=== PATIENT | male | born 1950 | race Caucasian/White ===

== ENCOUNTER 2017-09-17 16:43 | Inpatient (IN) | payer MEDICARE ==
[~2017-09-17] VITALS: Ht 182.9 cm; Wt 108.4 kg
[~2017-09-17 16:43] MED LIST: ASPI-496 PO; ATOR40TA78 PO; CARV-39 PO; CARV6.252 PO; CYCL-259 PO; GABA300C10 PO; HYDR-3237 PO; LISI-170 PO; LISI40TA PO; LOVA20TA2 PO; MAGN400O7 PO; METF10002 PO; SENN8.6C2 PO; TRAM50TA2 PO
[2017-09-17] MEDS ORDERED: SODIUM CHLORIDE FLUSH 10ML SYR IVF ONE (17:30)
[2017-09-17 17:44] LABS: BASOPHILS # (AUTO) 0.03 x10^3/uL (0-0.1); BASOPHILS % (AUTO) 0 % (0-1); EOSINOPHILS % (AUTO) 0 % (1-7); LYMPHOCYTES # (AUTO) 1.58 x10^3/uL (1-3.4); LYMPHOCYTES % (AUTO) 12 % (22-44); MD NO; MEAN CORPUSCULAR HEMOGLOBIN 27.3 pg (27.5-34.5); MEAN CORPUSCULAR HGB CONC 31.4 g/dL (33.2-36.2); MEAN PLATELET VOLUME 8.9 fL (7.4-10.4); MONOCYTES # (AUTO) 1.09 x10^3/uL (0.2-0.8); MONOCYTES % (AUTO) 8 % (2-9); NEUTROPHILS % (AUTO) 80 % (42-75); PLATELET COUNT 363 x10^3/uL (130-400); RED BLOOD COUNT 4.77 x10^6/uL (4.38-5.82); RED CELL DISTRIBUTION WIDTH 16.4 % (9.4-14.8)
[2017-09-17 17:54] LABS: ALANINE AMINOTRANSFERASE 39 U/L (12-78); ALBUMIN 2.4 g/dL (3.4-5.0); ANION GAP 5 mmol/L (5-15); CALCIUM 8.7 mg/dL (8.5-10.1); CHLORIDE 104 mmol/L (98-107); CREATININE 1.45 mg/dL (0.7-1.3)
[2017-09-17 17:59] LABS: ALKALINE PHOSPHATASE 201 U/L (45-117); BILIRUBIN,TOTAL 0.8 mg/dL (0.2-1.0); TOTAL PROTEIN 8.4 g/dL (6.4-8.2)
[2017-09-17 18:06] LABS: INTERNATIONAL NORMALIZED RATIO 1.2 (0.93-1.1); PROTHROMBIN TIME 12.4 Seconds (9.6-11.5)
[2017-09-17] MEDS ORDERED: AZITHROMYCIN 500 MG in SODIUM CHLORIDE 0.9% 250 ML IVPB ONE (19:00)
[2017-09-17] MEDS ORDERED: CEFTRIAXONE PMX 1GM/50ML 50 ML IVPB ONE (19:00)
[2017-09-17] MEDS ORDERED: SODIUM CHLORIDE FLUSH 10ML SYR IVF PRN (19:30)
[2017-09-17] MEDS ORDERED: CEFTRIAXONE PMX 1GM/50ML 50 ML ONE (20:10)
[2017-09-17] MEDS ORDERED: morphine SULFATE 10 MG/ML, 1ML IVPush PRN (21:00)
[2017-09-17] MEDS ORDERED: NITROGLYCERIN 0.4 MG BOTTLE (25 TABS) SL PRN (21:00)
[2017-09-17] MEDS ORDERED: CARVEDILOL 25 MG TABLET PO SCH (21:00)
[2017-09-17] MEDS ORDERED: ACETAMINOPHEN 325 MG TABLET PO PRN (21:00)
[2017-09-17] MEDS ORDERED: ONDANSETRON 2MG/ML, 2ML IVPush PRN (21:00)
[2017-09-17] MEDS ORDERED: BISACODYL 10 MG SUPP PR PRN (21:00)
[2017-09-17] MEDS ORDERED: POLYETHYLENE GLYCOL 17 GM PACKET PO PRN (21:00)
[2017-09-17] MEDS ORDERED: FUROSEMIDE 20 MG/2 ML IV SCH (21:00)
[2017-09-17] MEDS ORDERED: METHOCARBAMOL 750 MG TABLET PO PRN (21:00)
[2017-09-17] MEDS ORDERED: HEPARIN 5,000 UNITS/ML, 1ML IV ONE (21:30)
[2017-09-17] MEDS ORDERED: HEPARIN 5,000 UNITS/ML, 1ML IV PRN (21:30)
[2017-09-17] MEDS ORDERED: HEPARIN 25,000 UNITS/500ML PMX 500 ML IV PRN (21:30)
[2017-09-17] MEDS: CEFTRIAXONE PMX 1GM/50ML 50 ML IV SCH (22:26)
[2017-09-17] MEDS: AZITHROMYCIN 500 MG in SODIUM CHLORIDE 0.9% 250 ML IV SCH (22:45)
[2017-09-17] MEDS: ATORVASTATIN 40 MG TABLET PO SCH (22:46)
[2017-09-17] MEDS: SODIUM CHLORIDE FLUSH 10ML SYR IVF SCH (22:46)
[2017-09-17 23:56] LABS: TROPONIN I 0.944 ng/mL (0.000-0.045)
[2017-09-18 01:43] VITALS: BP_SYST 70; BP_SYST 72; BP_DIAS 47; BP_DIAS 50
[2017-09-18 02:30] VITALS: BP 92/58
[2017-09-18] MEDS ORDERED: SODIUM CHLORIDE 0.9%, 500ML IVBOLUS ONE (02:30)
[2017-09-18 02:40] VITALS: BP 92/60
[2017-09-18 05:30] LABS: BASOPHILS # (AUTO) 0.07 x10^3/uL (0-0.1); BASOPHILS % (AUTO) 0 % (0-1); EOSINOPHILS % (AUTO) 0 % (1-7); LYMPHOCYTES # (AUTO) 1.46 x10^3/uL (1-3.4); LYMPHOCYTES % (AUTO) 10 % (22-44); MD NO; MEAN CORPUSCULAR HEMOGLOBIN 27.4 pg (27.5-34.5); MEAN CORPUSCULAR HGB CONC 31.5 g/dL (33.2-36.2); MEAN CORPUSCULAR VOLUME 86.9 fL (81-97); MONOCYTES # (AUTO) 1.22 x10^3/uL (0.2-0.8); MONOCYTES % (AUTO) 8 % (2-9); NEUTROPHILS % (AUTO) 82 % (42-75); PLATELET COUNT 293 x10^3/uL (130-400); RED BLOOD COUNT 4.15 x10^6/uL (4.38-5.82); RED CELL DISTRIBUTION WIDTH 16.4 % (9.4-14.8)
[2017-09-18 05:44] LABS: CHLORIDE 106 mmol/L (98-107)
[2017-09-18 06:01] LABS: ALANINE AMINOTRANSFERASE 27 U/L (12-78); ALBUMIN 1.9 g/dL (3.4-5.0); ALKALINE PHOSPHATASE 153 U/L (45-117); ANION GAP 7 mmol/L (5-15); BILIRUBIN,TOTAL 0.8 mg/dL (0.2-1.0); CREATINE KINASE, TOTAL 205 U/L (39-308); CREATININE 1.32 mg/dL (0.7-1.3); TOTAL PROTEIN 6.8 g/dL (6.4-8.2); TROPONIN I 0.971 ng/mL (0.000-0.045)
[2017-09-18 06:17] LABS: MICROSCOPIC INDICATED
[2017-09-18 06:28] LABS: AMPHETAMINE SCREEN, URINE Positive (Negative); BARBITURATE SCREEN, URINE Negative (Negative); BENZODIAZEPINE SCREEN, URINE Negative (Negative); CANNABINOID SCREEN, URINE Negative (Negative); COCAINE SCREEN, URINE Negative (Negative); METHADONE SCREEN, URINE Negative (Negative); OPIATE SCREEN, URINE Negative (Negative)
[2017-09-18 06:29] LABS: CULTURE INDICATED? NO
[2017-09-18] MEDS: FUROSEMIDE 20 MG/2 ML IV SCH ×2 (07:30→15:38)
[2017-09-18 08:11] VITALS: BP 102/68
[2017-09-18] MEDS: SODIUM CHLORIDE FLUSH 10ML SYR IVF SCH ×2 (09:00→21:25)
[2017-09-18] MEDS ORDERED: LISINOPRIL 20 MG TABLET PO SCH (09:00)
[2017-09-18] MEDS ORDERED: CARVEDILOL 25 MG TABLET PO SCH ×2 (09:00→21:00)
[2017-09-18] MEDS: SENNA/DOCUSATE TABLET PO SCH (10:31)
[2017-09-18] MEDS: ASPIRIN 81 MG TABLET EC PO SCH (10:31)
[2017-09-18 14:00] VITALS: BP 128/77
[2017-09-18] MEDS: HEPARIN 5,000 UNITS/ML, 1ML SQ SCH (15:38)
[2017-09-18] MEDS ORDERED: CARVEDILOL 6.25 MG TABLET PO SCH (21:00)
[2017-09-18] MEDS: CEFTRIAXONE PMX 1GM/50ML 50 ML IV SCH (21:06)
[2017-09-18 21:13] VITALS: BP 100/63
[2017-09-18] MEDS: ATORVASTATIN 40 MG TABLET PO SCH (21:25)
[2017-09-18] MEDS: AZITHROMYCIN 500 MG in SODIUM CHLORIDE 0.9% 250 ML IV SCH (21:52)
[2017-09-18] MEDS ORDERED: SODIUM CHLORIDE 0.9% 1,000 ML IVBOLUS PRN (22:49)
[2017-09-18] MEDS ORDERED: GLUCAGON 1 MG IVPush ONE (23:30)
[2017-09-18] MEDS ORDERED: NOREPINEPHRINE 1 MG/ML, 4ML ONE (23:35)
[2017-09-18] MEDS: NOREPINEPHRINE 4 MG in SODIUM CHLORIDE 0.9% 246 ML IV PRN (23:40)
[2017-09-19] LABS: TROPONIN I 0.471 ng/mL (0.000-0.045)
[2017-09-19] MEDS ORDERED: NOREPINEPHRINE 4 MG in SODIUM CHLORIDE 0.9% 246 ML IV PRN
[2017-09-19] MEDS: HEPARIN 5,000 UNITS/ML, 1ML SQ SCH ×3 (00:03→15:43)
[2017-09-19] MEDS ORDERED: SODIUM CHLORIDE 0.9% 1,000ML IVBOLUS ONE ×2 (02:00→10:00)
[2017-09-19] MEDS: NOREPINEPHRINE 4 MG in SODIUM CHLORIDE 0.9% 246 ML IV PRN (02:11)
[2017-09-19] MEDS: SODIUM CHLORIDE 0.9% 1,000 ML IV SCH ×4 (02:39→20:22)
[2017-09-19 03:24] LABS: BASOPHILS # (AUTO) 0.08 x10^3/uL (0-0.1); BASOPHILS % (AUTO) 1 % (0-1); EOSINOPHILS % (AUTO) 0 % (1-7); LYMPHOCYTES # (AUTO) 1.69 x10^3/uL (1-3.4); LYMPHOCYTES % (AUTO) 11 % (22-44); MD NO; MEAN CORPUSCULAR HEMOGLOBIN 27.1 pg (27.5-34.5); MEAN CORPUSCULAR HGB CONC 30.7 g/dL (33.2-36.2); MEAN CORPUSCULAR VOLUME 88.3 fL (81-97); MEAN PLATELET VOLUME 9.4 fL (7.4-10.4); MONOCYTES # (AUTO) 0.95 x10^3/uL (0.2-0.8); MONOCYTES % (AUTO) 6 % (2-9); NEUTROPHILS # (AUTO) 12.32 x10^3/uL (1.8-6.8); NEUTROPHILS % (AUTO) 82 % (42-75); PLATELET COUNT 298 x10^3/uL (130-400); RED BLOOD COUNT 4.14 x10^6/uL (4.38-5.82); RED CELL DISTRIBUTION WIDTH 16.4 % (9.4-14.8)
[2017-09-19 03:29] LABS: ANION GAP 5 mmol/L (5-15); CALCIUM 7.6 mg/dL (8.5-10.1); CHLORIDE 105 mmol/L (98-107); CREATININE 1.44 mg/dL (0.7-1.3)
[2017-09-19] MEDS ORDERED: VASOPRESSIN 100 UNIT in SODIUM CHLORIDE 0.9% 495 ML IV PRN (03:30)
[2017-09-19] MEDS ORDERED: LIDOCAINE-MPF 1%, 2ML ENDO PRN (04:00)
[2017-09-19] MEDS ORDERED: PHARMACY MAY ADJ FOR RENAL FX MC SCH (04:00)
[2017-09-19] MEDS: NOREPINEPHRINE 8 MG in SODIUM CHLORIDE 0.9% 242 ML IV PRN ×2 (04:13→09:31)
[2017-09-19] MEDS: FAMOTIDINE 20 MG/2 ML IV SCH ×2 (04:35→15:43)
[2017-09-19 05:00] VITALS: BP_SYST 83; BP_SYST 93; BP_DIAS 56; BP_DIAS 59
[2017-09-19] MEDS ORDERED: ETOMIDATE 20 MG/10 ML ONE (07:30)
[2017-09-19] MEDS ORDERED: MIDAZOLAM 1 MG/ML, 5ML ONE (07:30)
[2017-09-19] MEDS ORDERED: PROPOFOL 10 MG/ML, 100ML IV ONE (07:30)
[2017-09-19] MEDS: SENNA/DOCUSATE TABLET PO SCH (09:00)
[2017-09-19] MEDS: ASPIRIN 81 MG TABLET EC PO SCH (10:07)
[2017-09-19] MEDS: CLOPIDOGREL 75 MG TABLET PO SCH (10:07)
[2017-09-19] MEDS: SODIUM CHLORIDE FLUSH 10ML SYR IVF SCH ×2 (10:11→20:27)
[2017-09-19] MEDS: NOREPINEPHRINE 16 MG in SODIUM CHLORIDE 0.9% 234 ML IV PRN (11:56)
[2017-09-19] MEDS: ATORVASTATIN 40 MG TABLET PO SCH (20:27)
[2017-09-19] MEDS: PROPOFOL 100 ML IV PRN (20:27)
[2017-09-19] MEDS ORDERED: CEFTRIAXONE 1,000 MG in DEXTROSE 5% 50 ML IV SCH (21:00)
[2017-09-19] MEDS: AZITHROMYCIN 500 MG in SODIUM CHLORIDE 0.9% 250 ML IV SCH (21:07)
[2017-09-20] MEDS: NOREPINEPHRINE 16 MG in SODIUM CHLORIDE 0.9% 234 ML IV PRN (00:06)
[2017-09-20] MEDS: HEPARIN 5,000 UNITS/ML, 1ML SQ SCH ×3 (00:06→16:23)
[2017-09-20] MEDS: FAMOTIDINE 20 MG/2 ML IV SCH ×2 (03:42→16:23)
[2017-09-20] MEDS: PROPOFOL 100 ML IV PRN ×3 (03:42→16:48)
[2017-09-20 04:00] VITALS: BP 114/69
[2017-09-20 04:27] LABS: BASOPHILS # (AUTO) 0.11 x10^3/uL (0-0.1); BASOPHILS % (AUTO) 1 % (0-1); EOSINOPHILS # (AUTO) 0.01 x10^3/uL (0-0.4); EOSINOPHILS % (AUTO) 0 % (1-7); LYMPHOCYTES # (AUTO) 2.19 x10^3/uL (1-3.4); LYMPHOCYTES % (AUTO) 17 % (22-44); MD NO; MEAN CORPUSCULAR HEMOGLOBIN 27.4 pg (27.5-34.5); MEAN CORPUSCULAR HGB CONC 32.1 g/dL (33.2-36.2); MEAN CORPUSCULAR VOLUME 85.4 fL (81-97); MEAN PLATELET VOLUME 8.7 fL (7.4-10.4); MONOCYTES # (AUTO) 0.97 x10^3/uL (0.2-0.8); MONOCYTES % (AUTO) 8 % (2-9); NEUTROPHILS # (AUTO) 9.56 x10^3/uL (1.8-6.8); NEUTROPHILS % (AUTO) 75 % (42-75); PLATELET COUNT 314 x10^3/uL (130-400); RED BLOOD COUNT 3.93 x10^6/uL (4.38-5.82); RED CELL DISTRIBUTION WIDTH 15.8 % (9.4-14.8)
[2017-09-20 04:38] LABS: ALANINE AMINOTRANSFERASE 35 U/L (12-78); ALBUMIN 1.8 g/dL (3.4-5.0); ANION GAP 9 mmol/L (5-15); CALCIUM 7.4 mg/dL (8.5-10.1); CHLORIDE 111 mmol/L (98-107)
[2017-09-20 04:41] LABS: ALKALINE PHOSPHATASE 227 U/L (45-117); BILIRUBIN,TOTAL 0.8 mg/dL (0.2-1.0); CREATINE KINASE, TOTAL 298 U/L (39-308)
[2017-09-20] MEDS: SODIUM CHLORIDE 0.9% 1,000 ML IV SCH ×2 (04:43→13:11)
[2017-09-20] MEDS ORDERED: DEXTROSE 50%, 50ML SYRINGE ONE (05:48)
[2017-09-20] MEDS: DEXTROSE 50%, 50ML SYRINGE IVPush PRN ×2 (06:04→14:59)
[2017-09-20] MEDS: ASPIRIN 81 MG TABLET EC PO SCH (09:23)
[2017-09-20] MEDS: SODIUM CHLORIDE FLUSH 10ML SYR IVF SCH (09:23)
[2017-09-20] MEDS: SENNA/DOCUSATE TABLET PO SCH (09:23)
[2017-09-20] MEDS: CLOPIDOGREL 75 MG TABLET PO SCH (09:23)
[2017-09-20] MEDS ORDERED: morphine SULFATE 10 MG/ML, 1ML IV ONE (19:00)
[2017-09-20] MEDS ORDERED: ATROPINE OPHTH SOLN 1%, 2ML PO PRN (19:00)
[2017-09-20] MEDS ORDERED: LORazepam 2 MG/ML, 1ML IV ONE (19:00)
[2017-09-20] MEDS ORDERED: LORazepam 2 MG/ML, 1ML IV PRN (19:00)
== END 2017-09-20 23:51 | disposition expired | DRG 871 ==
LOC: ED 18:27 → EDIP 19:34 → 5SO 20:46 → CCU 09-18 23:34
PROVIDERS: ADMIT Internal Medicine; ATTEND Internal Medicine
PROC: 5A1945Z Respiratory Ventilation, 24-96 Consecutive Hours (ICD-10-PCS; principal; 2017-09-19)
PROC: 0BH17EZ Insertion of Endotracheal Airway into Trachea, Via Natural or Artificial Opening (ICD-10-PCS; 2017-09-19)
PROC: 05HM33Z Insertion of Infusion Device into Right Internal Jugular Vein, Percutaneous Approach (ICD-10-PCS; 2017-09-19)
PROC: B543ZZA Ultrasonography of Right Jugular Veins, Guidance (ICD-10-PCS; 2017-09-19)
DX: A41.9 Sepsis, unspecified organism (principal); I21.4 Non-ST elevation (NSTEMI) myocardial infarction; J96.01 Acute respiratory failure with hypoxia; E43 Unspecified severe protein-calorie malnutrition; R65.21 Severe sepsis with septic shock; G93.41 Metabolic encephalopathy; J15.9 Unspecified bacterial pneumonia; Z99.11 Dependence on respirator [ventilator] status; I50.43 Acute on chronic combined systolic (congestive) and diastolic (congestive) heart failure; N17.9 Acute kidney failure, unspecified; E87.2 Acidosis; M62.82 Rhabdomyolysis; J98.11 Atelectasis; E11.51 Type 2 diabetes mellitus with diabetic peripheral angiopathy without gangrene; D64.9 Anemia, unspecified; I11.0 Hypertensive heart disease with heart failure; R74.0 Nonspecific elevation of levels of transaminase and lactic acid dehydrogenase [LDH]; E78.5 Hyperlipidemia, unspecified; F15.10 Other stimulant abuse, uncomplicated; F17.210 Nicotine dependence, cigarettes, uncomplicated; G89.29 Other chronic pain; I07.1 Rheumatic tricuspid insufficiency; I25.10 Atherosclerotic heart disease of native coronary artery without angina pectoris; I35.0 Nonrheumatic aortic (valve) stenosis; I70.292 Other atherosclerosis of native arteries of extremities, left leg; Z51.5 Encounter for palliative care; M54.9 Dorsalgia, unspecified; F32.9 Major depressive disorder, single episode, unspecified; W01.0XXA Fall on same level from slipping, tripping and stumbling without subsequent striking against object, initial encounter; Z66 Do not resuscitate; Z79.82 Long term (current) use of aspirin; Z82.49 Family history of ischemic heart disease and other diseases of the circulatory system; Z83.3 Family history of diabetes mellitus; Z68.32 Body mass index [BMI] 32.0-32.9, adult; Z91.19 Patient's noncompliance with other medical treatment and regimen; I25.2 Old myocardial infarction; Z98.1 Arthrodesis status; Y93.89 Activity, other specified; Y92.098 Other place in other non-institutional residence as the place of occurrence of the external cause; Y99.8 Other external cause status
CPT/HCPCS: 36415; 36600; 70450; 71045; 80048; 80053; 80307; 81001; 82533; 82550; 82728; 82803; 82962; 83540; 83550; 83605; 83690; 83735; 83880; 84478; 84484; 85014; 85018; 85025; 85520; 85610; 85730; 87040; 87070; 87081; 87205; 93005; 93306; 93922; 93925; 93979; 94002; 94003; 96365; J0456; J0696; J1644; J2250; J2405; J2704; J7060; C1750; G0479; J1940; J2060; J2270; J7030; J7040; J7050; S0028